=== PATIENT | female | born 1970 | race Caucasian/White ===

== ENCOUNTER 2017-01-19 16:53 | Outpatient (CLI) | payer OTHER ==
[2010-12-08 13:58] VITALS: BMI 29.5
== END 2017-01-19 23:59 | disposition home or self-care (01) ==
LOC: D.MAMMO 16:53
DX: Z12.31 Encounter for screening mammogram for malignant neoplasm of breast (principal)

== ENCOUNTER → 2017-08-21 15:15 | Outpatient (CLI) | payer OTHER ==
[2010-12-08 13:58] VITALS: BMI 29.5
== END | disposition home or self-care (01) ==
LOC: D.CT 15:15
DX: R97.0 Elevated carcinoembryonic antigen [CEA] (principal)

== ENCOUNTER → 2018-01-22 20:14 | Outpatient (CLI) | payer OTHER ==
[2010-12-08 13:58] VITALS: BMI 29.5
== END | disposition home or self-care (01) ==
LOC: D.MAMMO 14:00
DX: Z12.31 Encounter for screening mammogram for malignant neoplasm of breast (principal)

== ENCOUNTER → 2018-12-06 10:36 | Outpatient (CLI) | payer OTHER ==
[2010-12-08 13:58] VITALS: BMI 29.5
== END | disposition home or self-care (01) ==
LOC: D.US 10:36
PROVIDERS: ATTEND Family Medicine
DX: R59.0 Localized enlarged lymph nodes (principal)

== ENCOUNTER 2019-02-05 09:00 | Outpatient (CLI) | payer OTHER ==
[2010-12-08 13:58] VITALS: BMI 29.5
== END 2019-02-05 10:00 | disposition home or self-care (01) ==
LOC: D.MAMMO 09:00
PROVIDERS: ATTEND Family Medicine
DX: Z12.31 Encounter for screening mammogram for malignant neoplasm of breast (principal)